=== PATIENT | male | born 1985 | race American Indian/Alaskan Native ===

== ENCOUNTER 2018-12-02 05:16 | Emergency (ER) | payer SELFPAY | END 2018-12-02 05:39 | disposition left against medical advice (07) | LOC: ED 05:16 ==

== ENCOUNTER 2020-02-26 19:23 | Emergency (ER) | payer SELFPAY ==
[2020-02-26 20:30] VITALS: BP 122/69
--- NOTE | 2020-02-26 21:25 | Emergency Department Report ---
Suture/Staple Removal - HPI Chief Complaint: Laceration/Recheck/Suture Stated Complaint: NEED STITCHES TAKEN OUT Time Seen by Provider: 02/26/20 21:17 When Sutures or [place] Placed: 02/18/2020 Wound Location: left chest wall ED Review of Systems ROS: Stated complaint: NEED STITCHES TAKEN OUT Other details as noted in HPI Comment: All other systems reviewed and negative ED Past Medical Hx - Past Medical History Previous Medical History?: No - Surgical History Past Surgical History?: No - Social History Smoking Status: Current Every Day Smoker Substance Use Type: Alcohol, Marijuana - Medications Home Medications: Home Medications Medication Instructions Recorded Confirmed Last Taken Type No Known Home Medications [No 09/15/16 09/15/16 Unknown History Reported Home Medications] Suture Removal Exam - Exam General: Vital signs noted. No distress. Alert and acting appropriately. Wound: No Pathologic Erythema, No Tenderness, No Drainage, No Pus, No Wound Dehiscence Other Systems: All other systems reviewed and are unremarkable. ED Course Vital Signs 02/26/20 20:26 Temperature 98.9 F Pulse Rate 84 Respiratory 18 Rate Blood Pressure 122/69 O2 Sat by Pulse 100 Oximetry ED Recheck MDM - Medical Decision Making Patient is a 34-year-old male presents emergency room complaints of suture removal. He states that he had the sutures placed on 02/18/2020 at [facility]. He states that he got the cut to his left chest wall with a small saw. He states that the sutures and skin glue. He states he was given a tetanus immunization. He denies any fever, drainage, increased warmth, increased redness, increased pain. All sutures removed without any difficulty, no wound dehiscence, no signs of infection, site appears clean, dry, intact. advised pt please continue to keep area clean, dry, covered. may wash with soap and water and immediately dry. no hot tub, no pool, no soaking in water, no heavy lifting. follow up with a primary care doctor. return to the emergency room for any new or worsening symptoms. Critical care attestation.: If time is entered above; I have spent that time in minutes in the direct care of this critically ill patient, excluding procedure time. ED Disposition Clinical Impression: Visit for suture removal Disposition: DC-01 TO HOME OR SELFCARE Is pt being admited?: No Does the pt Need Aspirin: No Condition: Stable Instructions: Suture Removal (ED) Additional Instructions: please continue to keep area clean, dry, covered. may wash with soap and water and immediately dry. no hot tub, no pool, no soaking in water, no heavy lifting. follow up with a primary care doctor. return to the emergency room for any new or worsening symptoms. Referrals: ISMA CORBETT MD [Staff Physician] - 3-5 Days [facility] [Provider Group] - 3-5 Days Time of Disposition: 21:25 Print Language: UPPER SORBIAN
== END 2020-02-26 21:35 | disposition home or self-care (01) ==
LOC: ED 19:23
DX: Z48.02 Encounter for removal of sutures (principal); Z53.21 Procedure and treatment not carried out due to patient leaving prior to being seen by health care provider